=== PATIENT | female | born 1935 | race Caucasian/White ===

== ENCOUNTER 2016-07-12 19:19 | Emergency (ER) | payer MEDICARE ==
[~2016-07-12] VITALS: Ht 152.4 cm; Wt 59.5 kg
[~2016-07-12 19:19] MED LIST: ASCO-294 PO; ASPI-973 PO; CALC-78 PO; CETI10TA27 PO; CHOL100045 PO; FLUT16SP NS; FUR20 PO; LEVE100014 PO; LISI-571 PO; LOPE1TAB13 PO; LOPE2CAP PO; MULT-1018 PO; NEO AFFECT_EAR; NEO/3.5O17 OP; PALB75CA PO; POTA10TA7 PO; POTA20TA16 PO; SENN1TAB90 PO; SIMV20TA4 PO; [UNRECOGNIZED DRUG - CODE] OT; [UNRECOGNIZED DRUG - OTHER] AFFECT_EAR
[2016-07-12 19:32] VITALS: BP 120/79; PULSE 100; RESP 20; O2SAT 96
--- NOTE | 2016-07-12 21:14 | ED.REPORT ---
HPI-General Illness Date of Service Jul 12, 2016 ED Provider: Isaias Curtis MD Pt is an 80 y.o. female with a hx of breast cancer with brain metastasis, HTN, CAD, and DM who presents to the ED c/o vomiting onset 2 days ago. Pt reports associated nausea and diaphoresis. She denies abdominal pain, chest pain, diarrhea, and dysuria. She also denies any recent sick contacts. Since arrival to the ED pt has been able to tolerate 7-Up without vomiting. Nursing Notes Stated Complaint: FEELING SICK,FEVER Chief Complaint: General Complaint Nursing Notes Reviewed: Yes Allergies: Coded Allergies: codeine (Verified Allergy, Severe, gets violent, spaced out, vomiting, 02/18) morphine (Verified Allergy, Severe, gets spaced out, 07/12/16) Scheduled Ascorbate Calcium (Vitamin C) 500 Mg Tablet 500 MG PO DAILY Aspirin (Aspirin) 81 Mg Tablet 81 MG PO HS Calcium Carbonate/Vitamin D3 (Calcium 500 + Vit D Caplet) 1 Each Tablet 1 EACH PO DAILY Cetirizine HCl (All Day Allergy) 10 Mg Tab.chew 10 MG PO DAILY Cholecalciferol (Vitamin D3) (Vitamin D) 1,000 Unit Capsule 1,000 UNIT PO DAILY Fluticasone Propionate (Fluticasone Propionate Nasal) 16 Gm [place].susp 1 SPRAY NS BID Furosemide (Furosemide) 20 Mg Tab 20 MG PO DAILY Levetiracetam (Keppra) 1,000 Mg Tablet 1,000 MG PO BID Lisinopril (Lisinopril) 5 Mg Tablet 5 MG PO DAILY Multivitamin (Multi Vitamin Daily) 1 Each Tablet EACH PO DAILY Amrit/Polymyx B Sulf/Dexameth (Jbmnhr-Yvoua-Pxglest Eye Ointm) 3.5 Gm Oint...g. 3.5 GM OP DIRECTED Neomycin Cabral/Colist/Hc/Thonzon (Coly-Mycin S Otic Susp Drop) 3.3 Mg-3 Mg-10 Mg- 0.5 Mg/Ml Drops.susp 10 ML OT DIRECTED Palbociclib (Ibrance) 75 Mg Capsule 75 MG PO DAILY Potassium Chloride (Potassium Chloride) 20 Meq Tab.er.prt 20 MEQ PO DAILY TAKE WITH FOOD Potassium Chloride ER (Klor-Con 10) 10 Meq Tablet 10 MEQ PO DAILY Simvastatin (Simvastatin) 20 Mg Tablet 20 MG PO HS Scheduled PRN Loperamide (Loperamide) 2 Mg Capsule 2 MG PO BID PRN PRN For Diarrhea or Loose Stool Loperamide/Simethicone (Imodium Multi-Symptom Rel Cplt) 1 Each Tablet 1 EACH PO DIRECTED PRN PRN For Diarrhea or Loose Stool Ondansetron ODT (Ondansetron ODT) 4 Mg Tab.rapdis 4 MG PO QID PRN PRN For Nausea Sennosides/Docusate Sodium (Senna-Docusate Sodium Tablet) 1 Each Tablet 1 EACH PO DAILY PRN PRN For Constipation Miscellaneous Medications ([Amrit/Poly Ear Gtts]) AFFECT_EAR General Time Seen by MD: 21:11 Chief Complaint Vomiting Hx Obtained From: Patient Arrived By: Wheelchair Sudden in Onset?: Yes Onset Occurred: 2 days ago Severity: Current: No pain currently Severity: Maximum: No pain Past Medical History Past Medical History 1. Hypercholesterolemia. 2. Hypertension, essential. 3. CAD. 4. Dysmetabolic syndrome X. 5. Obesity. 6. Chronic ischemic heart disease. 7. Breast cancer with mets to the brain. Reports: Cancer, Diabetes mellitus Past Surgical History bilateral mastectomy Left TKA Cardiac Stents Reports: Pacemaker insertion Smoking History Never Smoker Social History Alcohol Use: Denies alcohol use Drug Use: Denies drug use Other Social History: Good social support, , Local resident Review of Systems Full Review of Systems Cardiovascular: Denies: Chest pain GI: Reports: Nausea, Vomiting, Denies: Abdominal pain, Diarrhea Female: Denies: Dysuria Skin: Reports Diaphoresis Complete sys rev & neg: except as marked. Physical Exam Vital Signs Vital Signs Date Time Temp Pulse Resp B/P Pulse Ox O2 Delivery O2 Flow Rate FiO2 07/12/16 19:32 36.0 100 20 120/79 96 Room Air Initial VS: Reviewed, Vital signs normal Head / Eyes: Atraumatic, Normocephalic Extremities: Vascular intact, Neuro intact Skin: Warm, Dry, No cyanosis Neurologic: Alert, Oriented, Nonfocal Psychiatric: Mood/affect normal, Behavior normal, Normal thought content General/Constitutional: Awake, Alert, No acute distress, Well appearing, Well developed, Well nourished, Not toxic appearing Pt remained in wheelchair for physical exam ENT: Atraumatic, Airway patent Mouth: Positive: Mucous membranes dry Respiratory / Chest: Atraumatic, Breath sounds NL, Breath sounds = bilat, No respiratory distress, No rales, No rhonchi, No wheezing, No retractions, No stridor Cardiovascular: Heart rate NL, Heart sounds NL, Peripheral circulation NL Abdomen: Atraumatic, Soft, Non-tender, No guarding, No rebound, No distention Interpretation & Diagnostics Lab Results Interpretation Result Diagram: 07/12/16219907/12/16 220 Test 07/12/16 22:00 07/12/16 22:45 White Blood Count 2.8th/mm3 (3.8-10.1) Red Blood Count 3.69mil/mm3 (3.90-5.20) Hemoglobin 14.0g/dL (12.0-15.6) Hematocrit 43.2% (35.0-46.0) Mean Corpuscular Volume 117.1fL (81-100) Mean Corpuscular Hemoglobin 37.9pg (27.0-35.0) Mean Corpuscular Hemoglobin Concent 32.4% (32.0-37.0) Red Cell Distribution Width 13.8% (12.3-15.4) Platelet Count 149bil/L (150-400) Neutrophils (%) (Auto) 50.8% (40-74) Lymphocytes (%) (Auto) 38.1% (14-46) Monocytes (%) (Auto) 7.5% (4-12) Eosinophils (%) (Auto) 0.4% (0-5) Basophils (%) (Auto) 2.8% (0-3) Sodium Level 133mEq/L (134-144) Potassium Level 5.2mEq/L (3.5-5.2) Chloride Level 97mEq/L (97-108) Carbon Dioxide Level 17mmol/L (18-29) Blood Urea Nitrogen 28mg/dL (8-27) Creatinine 0.86mg/dL (0.57-1.00) Estimat Glomerular Filtration Rate 91mL/min (>59) Glucose Level 134mg/dL (60-99) Calcium Level 9.5mg/dL (8.5-10.1) Magnesium Level 1.8mg/dL (1.6-2.6) Total Bilirubin 0.6mg/dL (0.0-1.2) Aspartate Amino Transf (AST/SGOT) 21U/L (0-50) Alanine Aminotransferase (ALT/SGPT) 11U/L (0-32) Alkaline Phosphatase 49U/L (25-165) Troponin T 0.010ug/L (0.0-0.011) Total Protein 7.0g/dL (6.4-8.4) Albumin 4.0g/dL (3.4-5.0) Urine Color Yellow (YELLOW) Urine Appearance Hazy (CLEAR,HAZY) Urine pH 5.5 (5.0-8.0) Urine Specific [place] 1.030 (1.003-1.035) Urine Protein >300mg/dL (NEG,TRACE) Urine Glucose (UA) Negativemg/dL (NEGATIVE) Urine Ketones Tracemg/dL (NEGATIVE) Urine Occult Blood Small (NEGATIVE) Urine Nitrite Negative (NEGATIVE) Urine Bilirubin Negative (NEGATIVE) Urine Urobilinogen Normalmg/dL (NORMAL) Urine Leukocyte Esterase Negative (NEGATIVE) Urine RBC 0-2/hpf (0-2) Urine WBC 0-5/hpf (0-5) Urine Epithelial Cells Few/hpf (NONE-MOD) Urine Crystals Oxalic acid crystals (NONE Urine Bacteria None/hpf (NONE-FEW) Urine Hyaline Casts None/lpf (NONE) Urine Granular Casts None seen (NONE SEEN) Urine Waxy Casts None seen (NONE SEEN) Urine Red Blood Cell Casts None seen (NONE SEEN) Urine White Blood Cell Casts None seen (NONE SEEN) Urine Mucus Present (None Seen) Urine Trichomonas None seen (NONE SEEN) Urine Yeast None (NONE SEEN) Urine Culture Reflexed Not indicated Lab values outside NL range: no clinical significance. Re-Eval/Medical Decision Med Decision/Clinical Course 80-year-old female with metastatic breast CA presents with vomiting. There does not appear to be a severe etiology to the vomiting, likely a viral gastroenteritis. Labs are unremarkable. She responded nicely to fluids and ondansetron. She will be discharged home with ondansetron. Time of Eval: 00:12 Re-Evaluation/Progress Note: Pt rechecked. Pt is wanting to leave. Discussed plan for discharge, pt understands and agrees with plan. Counseled Regarding: Lab results, Need for follow-up, When/why to return to ED Discharge & Departure Primary Impression: Vomiting Vomiting type: unspecified Vomiting Intractability: non-intractable Nausea presence: with nausea Qualified Code: R11.2 - Nausea with vomiting, unspecified Disposition: Home Discharge Condition All VS Reviewed: Yes Condition: Improved Patient Instructions: Acute Nausea and Vomiting (ED) Additional Instructions: Labs are normal. There does not appear to be a serious causes vomiting. It is likely due to a viral stomach infection. Ondansetron 4 mg every 4-6 hours as needed, #4 dispensed #20 prescription written. All amounts of clear liquids. Follow-up as needed with your primary provider. Referrals: Falguni Maya MD (PCP) [employer] Attestation Portions of this note were transcribed by Tj Bailey. I, Dr. Curtis personally performed the history, physical exam and medical decision-making; I reviewed and confirmed the accuracy of the information in the transcribed note. Signed by: Ascencion Craig, 07/13/16 and 0030. copies to: Falguni Maya MD, Howard L MD Jul 12, 2016 21:14 TJ BAILEY Jul 12, 2016 21:34
[2016-07-12] MEDS ORDERED: Ondansetron 8 mg ODT Tablet PO ONE (21:35)
[2016-07-12 22:06] LABS: BASOPHILS % (AUTO) 2.8 % (0-3); EOSINOPHILS % (AUTO) 0.4 % (0-5); MONOCYTES % (AUTO) 7.5 % (4-12); Mean Corpuscular Hemoglobin 37.9 pg (27.0-35.0); Mean Corpuscular Volume 117.1 fL (81-100); NEUTROPHILS % (AUTO) 50.8 % (40-74); Platelet Count 149 bil/L (150-400)
[2016-07-12 22:28] LABS: TROPONIN T 0.01 ug/L (0.0-0.011)
[2016-07-12 22:39] LABS: Magnesium 1.8 mg/dL (1.6-2.6)
[2016-07-12 23:12] LABS: APPEARANCE,URINE HAZY (CLEAR,HAZY); COLOR,URINE YELLOW (YELLOW); OCCULT BLOOD,URINE SMALL (NEGATIVE); PH,URINE 5.5 (5.0-8.0); UROBILINOGEN,URINE NORMAL (NORMAL)
[2016-07-13] MEDS ORDERED: _Ondansetron ODT 4 mg Tablet PO PRN (00:15)
[2016-07-13] MEDS ORDERED: ONDA4TAB12 PO (00:25)
[2016-08-23] MEDS ORDERED: [UNRECOGNIZED DRUG - OTHER] (16:36)
[2016-09-24] MEDS ORDERED: FAS500INJ IM (16:25)
[2016-09-24] MEDS ORDERED: SPIR25TA3 PO (16:25)
== END 2016-07-13 00:36 | disposition home or self-care (01) ==
LOC: SED 20:34
DX: R11.2 Nausea with vomiting, unspecified (principal); E11.9 Type 2 diabetes mellitus without complications; I10 Essential (primary) hypertension; I25.10 Atherosclerotic heart disease of native coronary artery without angina pectoris; C50.919 Malignant neoplasm of unspecified site of unspecified female breast; C79.31 Secondary malignant neoplasm of brain; Z95.0 Presence of cardiac pacemaker; Z79.82 Long term (current) use of aspirin; Z88.5 Allergy status to narcotic agent

== ENCOUNTER 2016-08-29 20:41 | Emergency (ER) | payer MEDICARE ==
[~2016-08-29] VITALS: Ht 152.4 cm; Wt 65.9 kg
[~2016-08-29 20:41] MED LIST changes: +ONDA4TAB12 PO; +[UNRECOGNIZED DRUG - OTHER]
[2016-08-29 20:58] VITALS: BP 126/91; PULSE 57; RESP 16; O2SAT 94
--- NOTE | 2016-08-29 22:52 | ED.REPORT ---
HPI-Extremity Problem Lower Date of Service Aug 29, 2016 ED Provider: Isaias Curtis MD Patient is an 80 year old female with a history of remote breast cancer with widely metastatic disease including brain metathesis, hypertension, coronary artery disease, and diabetes mellitus who presents to the ED complaining of swelling and redness of her right leg onset 2-3 days ago. She also reports swelling in her left leg, but it is not as severe. The patient states her Lasix , which she takes MWF, usually is able to control the swelling in her legs. Patient reports pain in her toes but denies any other pain. The patient also reports a ground level fall 2 weeks ago but states that she has been able to ambulate since the injury occurred. Patient denies any more recent trauma or injury. The patient denies a history of blood clots of pulmonary embolism. She denies a cough, shortness of breath, hemoptysis, or chest pain. Nursing Notes Stated Complaint: SWOLLEN LEGS Chief Complaint: Extremity Trauma Nursing Notes Reviewed: Yes Allergies: Coded Allergies: codeine (Verified Allergy, Severe, gets violent, spaced out, vomiting, 02/18) morphine (Verified Allergy, Severe, gets spaced out, 07/12/16) Scheduled Ascorbate Calcium (Vitamin C) 500 Mg Tablet 500 MG PO DAILY Aspirin (Aspirin) 81 Mg Tablet 81 MG PO HS Calcium Carbonate/Vitamin D3 (Calcium 500 + Vit D Caplet) 1 Each Tablet 1 EACH PO DAILY Cetirizine HCl (All Day Allergy) 10 Mg Tab.chew 10 MG PO DAILY Cholecalciferol (Vitamin D3) (Vitamin D) 1,000 Unit Capsule 1,000 UNIT PO DAILY Fluticasone Propionate (Fluticasone Propionate Nasal) 16 Gm [place].susp 1 SPRAY NS BID Furosemide (Furosemide) 20 Mg Tab 20 MG PO DAILY Levetiracetam (Keppra) 1,000 Mg Tablet 1,000 MG PO BID Lisinopril (Lisinopril) 5 Mg Tablet 5 MG PO DAILY Multivitamin (Multi Vitamin Daily) 1 Each Tablet EACH PO DAILY Amrit/Polymyx B Sulf/Dexameth (Kgenac-Eektz-Hkvhbbj Eye Ointm) 3.5 Gm Oint...g. 3.5 GM OP DIRECTED Neomycin Cabral/Colist/Hc/Thonzon (Coly-Mycin S Otic Susp Drop) 3.3 Mg-3 Mg-10 Mg- 0.5 Mg/Ml Drops.susp 10 ML OT DIRECTED Palbociclib (Ibrance) 75 Mg Capsule 75 MG PO DAILY Potassium Chloride (Potassium Chloride) 20 Meq Tab.er.prt 20 MEQ PO DAILY TAKE WITH FOOD Potassium Chloride ER (Klor-Con 10) 10 Meq Tablet 10 MEQ PO DAILY Simvastatin (Simvastatin) 20 Mg Tablet 20 MG PO HS Scheduled PRN Loperamide (Loperamide) 2 Mg Capsule 2 MG PO BID PRN PRN For Diarrhea or Loose Stool Loperamide/Simethicone (Imodium Multi-Symptom Rel Cplt) 1 Each Tablet 1 EACH PO DIRECTED PRN PRN For Diarrhea or Loose Stool Ondansetron ODT (Ondansetron ODT) 4 Mg Tab.rapdis 4 MG PO QID PRN PRN For Nausea Sennosides/Docusate Sodium (Senna-Docusate Sodium Tablet) 1 Each Tablet 1 EACH PO DAILY PRN PRN For Constipation Miscellaneous Medications ([Amrit/Poly Ear Gtts]) AFFECT_EAR ([CT scan premeds]) Prednisone 50mg #3, 13 hr, 7 hr, 1 hr prior to scan Benadryl 50mg #1, 1 hr prior to scan General Time Seen by MD: 22:50 Chief Complaint Leg injury right Hx Obtained From: Patient Arrived By: Walk-in Onset Occurred: 3 days ago Symptom Duration: Since onset Location: : Foot left (all toes) Quality: Painful Severity: Current: Mild Severity: Maximum: Mild Recent Healthcare: No recent doctor visit, No recent hospitalization Similar Sx Previous: No Past Medical History Past Medical History 1. Hypercholesterolemia. 2. Hypertension, essential. 3. CAD. 4. Dysmetabolic syndrome X. 5. Obesity. 6. Chronic ischemic heart disease. 7. remote breast cancer with widely metastatic disease including brain metathesis Reports: Cancer, Diabetes mellitus Past Surgical History bilateral mastectomy Left TKA Cardiac Stents Reports: Pacemaker insertion Smoking History Never Smoker Social History Alcohol Use: Denies alcohol use Drug Use: Denies drug use Other Social History: Good social support, , Local resident Review of Systems Musculoskeletal: Reports: Extremity pain, Extremity swelling Skin: Reports Rash (redness of right lower extremity) Complete sys rev & neg: except as marked. Respiratory: Denies: Hemoptysis, Non-productive cough, Shortness of breath Cardiovascular: Denies: Chest pain Physical Exam Initial Vital Signs Vital Signs (First) Date Time Temp Pulse Resp B/P Pulse Ox O2 Delivery O2 Flow Rate FiO2 08/29/16 20:58 35.4 57 16 126/91 94 Room Air Initial VS: Reviewed, Vital signs abnormal Head / Eyes: Atraumatic, Normocephalic, PERRL ENT: Conjunctiva normal, No scleral icterus Neck: Supple, Non-tender Abdomen / GI: Soft, Non-tender Skin: Warm, Dry, No cyanosis Neurologic: Alert, Oriented, Nonfocal Psychiatric: Mood/affect normal, Behavior normal, Normal thought content Lower Extremity / Pelvis / MS: Neurologic intact, Vascular intact +3 edema to the right leg, up to the knee, with erythema. 1+ edema to the left leg. Ankle / Foot: Neurologic intact, Vascular intact Right foot: Nontender. No cracks between the toes. General/Constitutional: Awake, Alert, No acute distress Respiratory / Chest: Breath sounds NL, Breath sounds = bilat, No respiratory distress, No rales, No rhonchi, No wheezing Cardiovascular: Heart rate NL, Regular rhythm, Heart sounds NL, No murmurs Interpretation & Diagnostics US DVT IMPRESSION: No evidence of DVT. Radiologist: Ama Hendricks MD 08/29/2016 - 11:35:26 PM PDT Re-Eval/Medical Decision Med Decision/Clinical Course 81-year-old female with asymmetric swelling of the lower extremities. There is no evidence for DVT on ultrasound. Her Lasix was increased with recommendations to elevate and wear support hose. There is some erythema and warmth so she was started on Septra. Recheck in 2-3 days. Source of Hx: Old records Re-Evaluation/Progress : Time of Eval: 00:02 Patient Status: Condition improved Re-Evaluation/Progress Note: Rechecked the patient. She was informed that the ultrasound of her leg was negative for a DVT. Discussed her diuretic does, which is currently only MWF. Will plan to increase her dose and to start her on antibiotics. Patient understands and agrees with the plan to be discharged home. Discharge instructions and follow-up discussed. All questions were addressed. Return to the ED warnings given. Counseled Regarding: Diagnosis, Need for follow-up, When/why to return to ED Discharge & Departure Impression: Primary Impression: Cellulitis of right lower extremity Additional Impression: Edema of both legs Disposition: Home Discharge Condition All VS Reviewed: Yes Condition: Stable Patient Instructions: Cellulitis (ED) Additional Instructions: No evidence of blood clots in the leg veins. Recommend that you increase your Lasix (furosemide) to 20-40 mg daily. Elevate the legs. Recommend support hose. The right leg appears to have some infection so we will start Trimethoprim sulfamethoxazole DS 1 by mouth twice a day, #20 dispensed. Referrals: Falguni Maya MD (PCP) Scribe Attestation Portions of this note were transcribed by Claudette Silva. I, Dr. Curtis personally performed the history, physical exam and medical decision-making; I reviewed and confirmed the accuracy of the information in the transcribed note. Signed by: Ascencion Howe, 08/30/2016 0045 copies to: Falguni Maya MD, Howard L MD Aug 29, 2016 22:52 Claudette Silva Aug 29, 2016 23:02
[2016-08-30] MEDS ORDERED: _Trimethoprim-Sulfa 160/800 mg Tablet PO SCH (08:30)
--- NOTE | 2016-08-30 08:47 | DRSVH ---
PROCEDURE: US VEINOUS LEG DUPLEX UNILATERAL, RIGHT INDICATIONS: edema TECHNIQUE: Real-time imaging, as well as color and pulse Doppler interrogation, were performed of the lower extr emity deep veins from the inguinal ligament to the popliteal fossa. COMPARISON: None. FINDINGS: The deep veins are normally compressible, and free of intraluminal thrombus. Color and pu lse Doppler demonstrate normal phasic intraluminal flow. There is normal augmentation response to di stal compression maneuver. Edema present within the soft tissues of the lower leg. IMPRESSION: 1. No deep venous thrombosis identified within the right lower extremity. Note: These findings are concordant with the preliminary interpretation. Dictated by: Aftab WEINER Interpreted: Deanna Arshad MD on 08/30/2016 at 8:46 Transcribed by: PAOLA on 08/30/2016 at 8:46 Approved by: Deanna Arshad MD, PhD on 08/30/2016 at 8:52
[2016-09-24] MEDS ORDERED: SPIR25TA3 PO (16:25)
[2016-09-24] MEDS ORDERED: FAS500INJ IM (16:25)
== END 2016-08-30 00:49 | disposition home or self-care (01) ==
LOC: SED 20:41
DX: L03.115 Cellulitis of right lower limb (principal); R60.9 Edema, unspecified; W18.30XA Fall on same level, unspecified, initial encounter; Y93.9 Activity, unspecified; Y92.9 Unspecified place or not applicable; Y99.8 Other external cause status; I10 Essential (primary) hypertension; I25.10 Atherosclerotic heart disease of native coronary artery without angina pectoris; E11.9 Type 2 diabetes mellitus without complications; Z95.5 Presence of coronary angioplasty implant and graft; Z95.0 Presence of cardiac pacemaker; Z88.5 Allergy status to narcotic agent; Z79.82 Long term (current) use of aspirin